=== PATIENT | female | born 1995 | race African-American/Black ===

== ENCOUNTER 2019-06-08 21:37 | Inpatient (IN) | payer MEDICAID ==
[~2019-06-08] VITALS: Ht 180.3 cm; Wt 102.5 kg
[2019-06-08] MEDS ORDERED: SODIUM CHLORIDE 0.9% 1,000 ML IV ONE (23:37)
[2019-06-08] MEDS ORDERED: ACETAMINOPHEN 325MG TABLET PO STA (23:37)
[2019-06-08 23:42] LABS: CHLORIDE 104 mEq/L (98-107)
[2019-06-08 23:44] LABS: BASOPHILS % 0.7 % (0.0-2.0); EOSINOPHILS % 1.5 % (0.0-5.0); HEMATOCRIT. 38.9 % (36.0-48.0); HEMOGLOBIN. 13.6 g/dL (12.0-16.0); LYMPHOCYTES % 30.9 % (20.0-50.0); MEAN CORPUSCULAR HEMOGLOBIN 30.4 pg (28.0-32.0); MEAN CORPUSCULAR VOLUME 86.8 fL (81.0-99.0); MONOCYTES % 7.9 % (2.0-8.0); PLATELET 206 x1000/uL (130-400); RED BLOOD CELL COUNT 4.48 mill/uL (4.2-5.4); RED CELL DISTRIBUTION WIDTH 13.9 % (11.6-14.6)
[2019-06-08 23:47] LABS: D-DIMER 2.93 mg/L FEU (<0.50)
[2019-06-09] VITALS (7 sets, daily range): BP systolic 112–127; BP diastolic 68–75
[2019-06-09 00:21] LABS: B-HCG QUANTITATIVE 28467 mIU/mL (<3)
[2019-06-09] MEDS ORDERED: ENOXAPARIN 100MG/ML SYR SUBCUT ONE (01:00)
[2019-06-09] MEDS ORDERED: METF-414 PO (01:59)
[2019-06-09] MEDS ORDERED: AMOX-494 MT (01:59)
[2019-06-09] MEDS ORDERED: DEXTROSE 50% WATER 50ML SYRINGE IV PRN ×2 (02:15→13:00)
[2019-06-09] MEDS: INSULIN LISPRO 100 UNITS/ML SUBCUT SCH ×4 (08:18→20:26)
[2019-06-09] MEDS: BLOOD SUGAR DIAGNOSTIC STRIP TEST SCH ×4 (08:28→20:22)
[2019-06-09] MEDS: ENOXAPARIN 100MG/ML SYR SUBCUT SCH (12:30)
[2019-06-09 23:08] LABS: CLARITY URINE CLEAR (CLEAR); COLOR URINE YELLOW (YELLOW); KETONES URINE NEGATIVE (NEGATIVE); LEUKOCYTE ESTERASE URINE NEGATIVE (NEGATIVE); NITRITE URINE NEGATIVE (NEGATIVE); OCCULT BLOOD URINE NEGATIVE (NEGATIVE); PROTEIN URINE NEGATIVE (NEGATIVE); SPECIFIC GRAVITY URINE 1.042 (1.005-1.030)
[2019-06-09 23:20] LABS: *AMPHETAMINES SCREEN URINE NEGATIVE (NEGATIVE); *BARBITURATES SCREEN URINE NEGATIVE (NEGATIVE); *BENZODIAZEPINES SCREEN URINE NEGATIVE (NEGATIVE); *COCAINE SCREEN URINE NEGATIVE (NEGATIVE); CANNABINOID URINE SCREEN NEGATIVE (NEGATIVE)
[2019-06-09 23:21] LABS: METHADONE URINE SCREEN NEGATIVE (NEGATIVE); OPIATES URINE SCREEN NEGATIVE (NEGATIVE); PHENCYCLIDINE URINE SCREEN NEGATIVE (NEGATIVE)
[2019-06-10] VITALS: BP 120/70
[2019-06-10] MEDS: ENOXAPARIN 100MG/ML SYR SUBCUT SCH ×2 (00:07→12:47)
[2019-06-10 06:56] LABS: BASOPHILS % 0.7 % (0.0-2.0); EOSINOPHILS % 1.8 % (0.0-5.0); HEMATOCRIT. 37.9 % (36.0-48.0); HEMOGLOBIN. 13.3 g/dL (12.0-16.0); LYMPHOCYTES % 35.8 % (20.0-50.0); MEAN CORPUSCULAR VOLUME 85.3 fL (81.0-99.0); MEAN PLATELET VOLUME 8.8 fl (7.4-10.4); MONOCYTES % 8.7 % (2.0-8.0); PLATELET 216 x1000/uL (130-400); RED BLOOD CELL COUNT 4.45 mill/uL (4.2-5.4)
[2019-06-10 07:35] LABS: CHLORIDE 104 mEq/L (98-107)
[2019-06-10] MEDS: BLOOD SUGAR DIAGNOSTIC STRIP TEST SCH ×3 (07:40→17:40)
[2019-06-10 08:00] VITALS: BP 107/67
[2019-06-10] MEDS: INSULIN LISPRO 100 UNITS/ML SUBCUT SCH ×3 (08:49→18:24)
[2019-06-10 12:00] VITALS: BP 114/77
[2019-06-10 13:28] VITALS: BP 118/64
[2019-06-10 16:00] VITALS: BP 118/64
[2019-06-10] MEDS ORDERED: INSULIN GLARGINE UD 100 UNITS/ML SYR SUBCUT SCH (22:00)
== END 2019-06-10 18:49 | disposition home or self-care (01) | DRG 566 ==
LOC: ER 21:37 → 7WST 06-09 01:02 → ENRESERV 06-09 01:25
PROVIDERS: ADMIT Internal Medicine; ATTEND Internal Medicine
DX: O22.31 Deep phlebothrombosis in pregnancy, first trimester (principal); I82.432 Acute embolism and thrombosis of left popliteal vein; O24.911 Unspecified diabetes mellitus in pregnancy, first trimester; E11.65 Type 2 diabetes mellitus with hyperglycemia; Z3A.10 10 weeks gestation of pregnancy; Z71.6 Tobacco abuse counseling; F17.210 Nicotine dependence, cigarettes, uncomplicated; O99.331 Smoking (tobacco) complicating pregnancy, first trimester; Z79.84 Long term (current) use of oral hypoglycemic drugs
CPT/HCPCS: 36415; 76801; 80048; 80305; 81003; 82962; 83036; 84550; 84702; 85379; 85651; 86140; 93970; 96360; 99291; J1650; J1815; J7030

== ENCOUNTER 2019-07-25 13:47 | Emergency (ER) | payer MEDICAID ==
[~2019-07-25] VITALS: Ht 172.7 cm; Wt 82.0 kg
[~2019-07-25 13:47] MED LIST: METF-414 PO
[2019-07-25 16:37] LABS: CLARITY URINE CLEAR (CLEAR); COLOR URINE YELLOW (YELLOW); KETONES URINE NEGATIVE (NEGATIVE); LEUKOCYTE ESTERASE URINE NEGATIVE (NEGATIVE); NITRITE URINE NEGATIVE (NEGATIVE); OCCULT BLOOD URINE NEGATIVE (NEGATIVE); PH URINE 5.5 (4.5-8.0); PROTEIN URINE NEGATIVE (NEGATIVE); SPECIFIC GRAVITY URINE 1.028 (1.005-1.030); UROBILINOGEN URINE 0.2 E.U./dL (0.2-1.0)
[2019-07-25 17:21] LABS: BASOPHILS % 0.5 % (0.0-2.0); HEMATOCRIT. 37.4 % (36.0-48.0); HEMOGLOBIN. 13.1 g/dL (12.0-16.0); MEAN CORPUSCULAR HEMOGLOBIN 30.2 pg (28.0-32.0); MEAN CORPUSCULAR VOLUME 86.2 fL (81.0-99.0); MEAN PLATELET VOLUME 8.8 fl (7.4-10.4); MONOCYTES % 7.1 % (2.0-8.0); NEUTROPHILS % 59.4 % (40.0-76.0); PLATELET 254 x1000/uL (130-400); RED BLOOD CELL COUNT 4.34 mill/uL (4.2-5.4); RED CELL DISTRIBUTION WIDTH 14.1 % (11.6-14.6)
[2019-07-25 17:25] LABS: CHLORIDE 107 mEq/L (98-107)
[2019-07-25 17:41] VITALS: BP 120/66
[2019-07-25 17:49] LABS: B-HCG QUANTITATIVE 13664 mIU/mL (<3)
== END 2019-07-25 17:42 | disposition home or self-care (01) ==
LOC: ER 13:47
DX: O26.92 Pregnancy related conditions, unspecified, second trimester (principal); O20.0 Threatened abortion; R30.0 Dysuria; E11.9 Type 2 diabetes mellitus without complications; Z3A.17 17 weeks gestation of pregnancy; Z86.718 Personal history of other venous thrombosis and embolism
CPT/HCPCS: 36415; 76805; 81003; 81025; 84702; 86850; 86900; 99284

== ENCOUNTER 2019-09-23 21:31 | Observation (INO) | payer MEDICAID | END 2019-09-23 22:40 | disposition home or self-care (01) | LOC: 8 EST LDRP 21:31 | PROVIDERS: ADMIT Specialist; ATTEND Specialist | DX: O26.892 Other specified pregnancy related conditions, second trimester (principal); N89.8 Other specified noninflammatory disorders of vagina; Z3A.26 26 weeks gestation of pregnancy | CPT/HCPCS: 99281; G0378 ==

== ENCOUNTER 2020-04-26 14:15 | Emergency (ER) | payer MEDICAID ==
[~2020-04-26] VITALS: Ht 180.3 cm; Wt 99.0 kg
[2020-04-26] MEDS ORDERED: MORPHINE SULFATE 4 MG/ML CPJ (NOT FOR IM USE) IV ONE (15:30)
[2020-04-26] MEDS ORDERED: ONDANSETRON HCL 4MG/2ML INJ IV ONE (16:15)
[2020-04-26] MEDS ORDERED: KETAMINE HCL 50 MG/ML 10ML IV ONE (16:15)
[2020-04-26 20:46] VITALS: BP 125/89
== END 2020-04-26 21:01 | disposition short-term general hospital (02) ==
LOC: ER 14:15 → ENRESERV 19:48 → CANRESERV 19:48 → ER 21:01 → CANBEDREQ 04-27 02:23
DX: S52.592A Other fractures of lower end of left radius, initial encounter for closed fracture (principal); V49.49XA Driver injured in collision with other motor vehicles in traffic accident, initial encounter; Y93.89 Activity, other specified; Y92.89 Other specified places as the place of occurrence of the external cause; Y99.8 Other external cause status; E11.9 Type 2 diabetes mellitus without complications
CPT/HCPCS: 25605; 73090; 73110; 82962; 94644; 96374; 99152; 99285; J2270; J2405; J3490

== ENCOUNTER 2020-06-01 13:07 | Emergency (ER) | payer MEDICAID ==
[~2020-06-01] VITALS: Ht 177.8 cm; Wt 84.0 kg
[2020-06-01 13:20] VITALS: BP 110/58
[2020-06-01] MEDS ORDERED: ACETAMINOPHEN 325MG TABLET PO ONE (14:00)
== END 2020-06-01 15:18 | disposition home or self-care (01) ==
LOC: ER 14:25
DX: M25.532 Pain in left wrist (principal); E11.9 Type 2 diabetes mellitus without complications; Z87.81 Personal history of (healed) traumatic fracture; Z98.890 Other specified postprocedural states; Z79.84 Long term (current) use of oral hypoglycemic drugs; Z86.718 Personal history of other venous thrombosis and embolism
CPT/HCPCS: 73110; 99283